=== PATIENT | male | born 1935 | race Caucasian/White ===

== ENCOUNTER 2018-09-23 19:02 | Emergency (ER) | payer MEDICARE, BC ==
[2018-09-23 19:54] VITALS: BP 143/65
--- NOTE | 2018-09-23 20:26 | UC ---
UC General HPI - HPI Summary HPI Summary: PT NOTED SOME BURNING AROUND THE OUTSIDE OF HIS L ANKLE TODAY. THE AREA HAS BECOME RED, SWOLLEN AND WARM. NO HX INSECT BITE. HE WAS GARDENING EARLIER TODAY. NO F/C'S OR JOINT PAIN. - History of Current Complaint Chief Complaint: UCLowerExtremity Stated Complaint: LEFT FOOT SKIN CONCERN Time Seen by Provider: 09/23/18 20:18 Hx Obtained From: Patient, Family/[employer] Onset/Duration: Gradual Onset Timing: Constant Pain Intensity: 4 - Allergy/Home Medications Allergies/Adverse Reactions: Allergies Allergy/AdvReac Type Severity Reaction Status Date / Time No Known Allergies Allergy Verified 09/23/18 19:43 Home Medications: Home Medications Aspirin 81 mg CHEW TAB* [Aspirin Low Dose TAB*] 81 mg PO DAILY 09/23/18 [ History Confirmed 09/23/18] Cetirizine* [ZyrTEC 10 MG TAB*] 10 mg PO DAILY 09/23/18 [History Confirmed 09/23] Irbesartan 1 dose PO DAILY 09/23/18 [History Confirmed 09/23/18] Simvastatin 20 mg PO DAILY 09/23/18 [History Confirmed 09/23/18] PMH/Surg Hx/FS Hx/Imm Hx Endocrine History: Dyslipidemia Cardiovascular History: Hypertension - Surgical History Surgical History: Yes Surgery Procedure, Year, and Place: hernia repair. growth on back and shoulder. L knee - Family History Known Family History: Positive: Non-Contributory - Social History Occupation: Retired Lives: With Family Alcohol Use: Rare Substance Use Type: None Smoking Status (MU): Former Smoker When Did the Patient Quit Smoking/Using Tobacco: 03/21/1989 Review of Systems All Other Systems Reviewed And Are Negative: No Constitutional: Negative: Fever Skin: Positive: Rash - l ANKLE Musculoskeletal: Negative: Arthralgia, Decreased ROM Neurological: Negative: Weakness Physical Exam Triage Information Reviewed: Yes Appearance: Well-Appearing Vital Signs: Initial Vital Signs Temp 98.1 F 09/23/18 19:46 Pulse 65 09/23/18 19:46 Resp 17 09/23/18 19:46 BP 143/65 09/23/18 19:46 Pulse Ox 99 09/23/18 19:46 Vital Signs Reviewed: Yes Eyes: Positive: Conjunctiva Clear Neck: Positive: Supple Respiratory: Positive: No respiratory distress Cardiovascular: Positive: RRR Musculoskeletal: Positive: ROM Intact Neurological: Positive: Alert Psychological: Positive: Normal Response To Family, Age Appropriate Behavior Skin Exam: Normal Skin: Positive: Rashes - L lateral ankle and foot have mild swelling, erythema and warmth. non tender to touch. no streaking and no sign of insect bite or contact dermatitis. ankela dn foot have full s/v/m function. Course/Dx - Differential Dx - Multi-Symptom Differential Diagnoses: Other - non toxic. no concern for septic joint. no sign of insect bit or contact dermatitis. - Diagnoses Provider Diagnosis: Cellulitis Discharge - Sign-Out/Discharge Documenting (check all that apply): Patient Departure All imaging exams completed and their final reports reviewed: No Studies - Discharge Plan Condition: Stable Disposition: HOME Prescriptions: Cephalexin CAP* [Keflex CAP*] 500 mg PO TID 10 Days #30 cap Patient Education Materials: Cellulitis (DC) Referrals: Clyde Odonnell MD [Primary Care Provider] - Additional Instructions: RECHECK IN 2-3 DAYS OR SOONER FOR ANY WORSENING. - Billing Disposition and Condition Condition: STABLE Disposition: Home
== END 2018-09-23 20:42 | disposition home or self-care (01) ==
LOC: UCCORT 19:02
DX: L03.116 Cellulitis of left lower limb (principal); E78.5 Hyperlipidemia, unspecified; I10 Essential (primary) hypertension; Z87.891 Personal history of nicotine dependence
CPT/HCPCS: 99202; G0463